=== PATIENT | male | born 1945 | race Caucasian/White ===

== ENCOUNTER 2016-10-21 07:49 | Day surgery (SDC) | payer MEDICARE ==
[~2016-10-21] VITALS: Ht 177.8 cm; Wt 79.4 kg
[~2016-10-21 07:49] MED LIST: ASA325 PO; ATOR40TA37 PO; CHOL200020 PO; COZ25 PO; EZET10T PO; OMEG1CAP55 PO; SILD100T PO; Sodium Chloride LOK Flush 10 mL Syringe IV PRN; fentaNYL-PF 50 mCg/mL 2 mL Inj IVPUSH PRN
[2016-10-21 08:06] VITALS: BP 124/75; PULSE 77; RESP 16; O2SAT 97
[2016-10-21] MEDS: 0.9% Sodium Chloride 1,000 ML IV SCH ×3 (08:13→09:06)
[2016-10-21 09:20] VITALS: BP 141/82; PULSE 79; RESP 16; O2SAT 95
[2016-10-21 09:30] VITALS: BP 117/70; PULSE 79; RESP 16; O2SAT 94
--- NOTE | 2016-10-21 09:59 | ENDO ---
[address] [address] ENDOSCOPY PROCEDURE PATIENT: AURELIANO FUNEZ : 1945 MR#: [id number] ADMIT: 10/21/2016 JOB ID: [id number] PRIMARY PROVIDER: Titi Shelby MD PROCEDURE: Colonoscopy with cold snare polypectomy and cold forceps polypectomy. INDICATIONS: A 71-year-old male with a family history of colon cancer and a personal history of adenomatous colon polyps, returning for surveillance. EQUIPMENT: PCF-H180-AL. SEDATION: 3 mg Versed and 75 mcg fentanyl. COMPLICATIONS: None identified. BOWEL PREPARATION: Fair, adequate exam. PROCEDURE INFORMATION: After the risks and benefits were explained, written and verbal informed consent was obtained. The patient was brought into the endoscopy suite and placed into the left lateral decubitus position. Sedation was achieved using the above-stated medications with the addition of oxygen via nasal cannula. A digital rectal examination was accomplished. No significant pathology appreciated. The scope was introduced into the rectum and advanced to the cecum as identified by the appendiceal orifice and ileocecal valve. The scope was slowly withdrawn to carefully examine the mucosa for any defects or lesions. Retroflexed views were accomplished in the rectum. The colon was decompressed, the scope removed from the patient who tolerated the procedure well. FINDINGS: There were four small polyps removed today. The largest was perhaps 4-5 mm, and a cold snare was employed. All of the other ones we utilized cold forceps. They were submitted as "colon polyps," and they came from somewhere in the mid colon. Retroflexed views of the rectum were unremarkable. ENDOSCOPIC DIAGNOSIS: Multiple colon polyps. RECOMMENDATIONS: 1. Await histopathology. 2. Repeat colonoscopy in three years.
--- NOTE | 2016-10-22 10:09 | PATH ---
SURGICAL PATHOLOGY Attending Physician:Betzaida Boyce CASE STATUS: Signed Out PATIENT NAME: AURELIANO FUNEZ PID: [id number] : 1945 DATE COLLECTED:10/21/2016 21:14 SPECIMEN: Colon, Biopsy CLINICAL HISTORY: HISTORY OF COLON POLYPS 1). COLON POLYPS X4 FINAL DIAGNOSIS: 1.COLON POLYPS: TUBULAR ADENOMA INVOLVING TWO BIOPSY FRAGMENTS. TWO FRAGMENTS OF NORMAL-APPEARING COLON MUCOSA CONSISTENT WITH MUCOSAL REDUNDANCY, NEGATIVE FOR DYSPLASIA AND MALIGNANCY. ICD10 D12.6 GROSS DESCRIPTION: The specimen is received in one formalin filled container labeled with the patient's name, sublabeled "colon polyps" and consists of 4 portions of tissue which aggregate to 0.3 x 0.3 x 0.2 CM. The specimen is entirely submitted in one cassette. 10/21/2016 [facility] [place] MICRO DESCRIPTION: See diagnosis. ICD-9 CODES: CPT CODES: 1: 11623 Electronically Signed Out Vishnu Palemr MD [facility] [address], [place] [address] Technical component performed at [facility], [facility] [address], [place], [address]
== END 2016-10-21 23:59 | disposition home or self-care (01) ==
LOC: END 07:49
PROVIDERS: ATTEND Internal Medicine Gastroenterology
DX: Z12.11 Encounter for screening for malignant neoplasm of colon (principal); Z86.010 Personal history of colon polyps; D12.6 Benign neoplasm of colon, unspecified; I10 Essential (primary) hypertension; I25.10 Atherosclerotic heart disease of native coronary artery without angina pectoris; Z95.1 Presence of aortocoronary bypass graft
CPT/HCPCS: 45380; 45385; 99153; G0500; J7030